=== PATIENT | male | born 1995 | race African-American/Black ===

== ENCOUNTER 2023-10-28 15:57 | Emergency (ER) | payer SELFPAY ==
[~2023-10-28] VITALS: Ht 172.7 cm; Wt 142.0 kg
[2023-10-28 16:51] VITALS: BP 156/90; PULSE 71; RESP 16; TEMP 98.8; O2SAT 100
[2023-10-28] MEDS ORDERED: IBUPROFEN 800MG TABLET PO ONE (20:00)
[2023-10-28] MEDS ORDERED: IBUPROFEN 400MG TABLET PO NR (21:00)
[2023-10-28] MEDS ORDERED: IBUP-2030 MT (22:18)
== END 2023-10-28 23:09 | disposition home or self-care (01) ==
LOC: ER 15:57
DX: S90.01XA Contusion of right ankle, initial encounter (principal); X58.XXXA Exposure to other specified factors, initial encounter; Y93.89 Activity, other specified; Y92.89 Other specified places as the place of occurrence of the external cause; Y99.8 Other external cause status
CPT/HCPCS: 29515; 73610; 73630; 99284